=== PATIENT | female | born 2000 | race Hispanic/Latino ===

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

== ENCOUNTER 2023-03-13 09:10 | Emergency (ER) | payer SELFPAY ==
[2023-03-13 09:12] VITALS: BP 116/74; PULSE 78; RESP 16; TEMP 36.2; O2SAT 100; BMI 41.1
--- NOTE | 2023-03-13 10:02 | EDS_ITS ---
HPI History of Present Illness Chief Complaint: Abd Pain Narrative Narrative: Patient is a 22-year-old female who is presenting to the ER today with chief complaint abdominal cramping, urinary frequency, nausea vomiting. Patient is a G2, P1. Patient first was a , secondary to the fetus was hypoxic and patient had emergency . patient is currently here with her boyfriend. No complications occurred during her first . Electrical Superintendent was used for effective and clear communication with patient and her boyfriend at bedside. Patient allowed all information to occur at bedside with boyfriend. Patient has no pelvic pain, no vaginal bleeding. Patient is having urinary frequency. Patient is having diffuse abdominal pain/cramping along with some left lower back pain as well. No history of kidney stone. Patient has no fever or chills. Patient's had no vitamins. Patient has no PEDIATRIC CLINICAL DIETICIAN to follow-up with. Patient currently has no vaginal bleeding. Patient's first day of her last mental period was on December 20. Patient not lightheaded dizzy, no other sick contacts, no other acute complaints. Patient has no PEDIATRIC CLINICAL DIETICIAN to follow-up with. A auto service mechanic was used for communication. This was clear and effective. Patient's boyfriend is at bedside, we can speak about patient's medical care in front of her boyfriend as well. [facility] Medical History (Updated 03/13/23 @ 13:[address] Joon Husain DO) delivery delivered Home Medications nitrofurantoin monohydrate/macrocrystals 100 mg capsule 100 mg PO Q12 #14 CAPSULES 03/13/23 [Rx Last Taken Unknown] ondansetron 4 mg disintegrating tablet 4 mg PO Q8H PRN PRN Nausea #10 tabs 03/13/23 [Rx Last Taken Unknown] Allergy/AdvReac Type Severity Reaction Status Date / Time No Known Allergies Allergy Verified 08/21/21 16:05 Social History (Updated 08/21/21 @ 16:[address] Orlando Emery DO) Smoking Status: Never smoker ROS ROS ED ROS Narrative REVIEW OF SYSTEMS: Unless otherwise stated in this report the patient's positive and negative responses for review of systems for constitutional, eyes, ENT, cardiovascular, respiratory, gastrointestinal, neurological, , musculoskeletal, and integument systems and related systems to the presenting problem are either stated in the history of present illness or were not pertinent or were negative for the symptoms and/or complaints related to the presenting medical problem. EXAM Physical Exam Narrative Exam Narrative: Vital signs reviewed and patient is not hypoxic. Electrical Superintendent was used to help with [place]. Medication was clear with textbook associate. It was effective General: The patient appears well and in no apparent distress. Patient is resting comfortably on cart. Not toxic, lethargic, or listless. Skin: Warm, dry, no pallor noted. There is no rash noted. Head: Normocephalic, atraumatic Eye: Normal conjunctiva, no drainage, EOMI. PERRL. Ears, Nose, Mouth, and Throat: oral mucosa is moist. Nares patent. Mouth without vesicles. Cardiovascular: Regular Rate and Rhythm, no murmurs, gallops, or rubs Respiratory: Patient is in no distress, no accessory muscle use, lungs are clear to auscultation, no wheezing, rales or rhonchi Back: non-tender, no CVA tenderness bilaterally to percussion. NO CTLS midline or paraspinal tenderness to palpation. GI: Soft, no peritoneal signs, mild left flank tenderness to palpation, no right flank tenderness palpation. No right CVA tenderness, mild left CVA tenderness palpation. No rash. Diffuse periumbilical tenderness palpation, mild, no pain or McBurney's point, negative Rogers sign, abdomen is soft, no other acute complaints. Otherwise no tenderness to palpation, no masses appreciated. No rebound, guarding, or rigidity noted. Musculoskeletal: The patient has full range of motion of all extremities and j oints with no difficulty. Patient has no motor, no sensory deficits. Neurological: A&O x4, normal speech, no focal neurological deficits. Psychiatric: Cooperative Const Vital Signs: 03/13/23 09:12 Temperature 97.2 F L Temperature Source Temporal Pulse Rate 78 Respiratory Rate 16 Blood Pressure 116/74 Blood Pressure Mean 88 Pulse Ox 100 Oxygen Delivery Method Room Air MDM MDM MDM Narrative Medical decision making narrative: Patient will have IV established, patient given IV fluids, Zofran, lab testing and urine testing done. Patient has no pelvic pain or vaginal bleeding, no acute indication for ultrasound or further testing at this time. heart tones will be attempted Patient has nitrate in her urine. Patient lab work otherwise shows no acute findings. Patient feels better after IV fluids, IV Zofran. Patient is placed on Macrobid, sent him a prescription for Zofran as well. Patient has PEDIATRIC CLINICAL DIETICIAN referral as well. Patient understands that she needs to start taking vitamins and make an appointment with an PEDIATRIC CLINICAL DIETICIAN. Translation was done at bedside as well with a water supply engineer. Luther BAIRD was at bedside for a witness of this as well at patient's discharge. The workup, lab results, treatment plan, discharge instructions, and prescriptions were discussed at bedside and patient understands the plan clearly with auto service mechanic. Lab Data Labs: Laboratory Results - last 24 hr 03/13/23 03/13/23 09:35 10:35 WBC 9.6 RBC 4.06 L Hgb 11.6 L Hct 34.6 L MCV 85.2 MCH 28.6 MCHC 33.5 RDW Std Deviation 37.0 RDW Coeff of Tania 11.9 Plt Count 401 MPV 9.1 Immature Gran % (Auto) 0.200 Neut % (Auto) 73.8 H Lymph % (Auto) 19.6 [place] % (Auto) 4.6 Eos % (Auto) 1.4 Baso % (Auto) 0.4 Absolute Neuts (auto) 7.1 Absolute Lymphs (auto) 1.87 Nucleated RBC % 0 Sodium 135 L Potassium 3.5 Chloride 103 Carbon Dioxide 26.0 Anion Gap 6 BUN 6 L Creatinine 0.41 L Estim Creat Clear Calc 258.60 Est GFR (MDRD) Af Amer 250 Est GFR (MDRD) Non-Af 207 BUN/Creatinine Ratio 14.5 Glucose 83 Calcium 9.4 Total Bilirubin 0.30 AST 14 L ALT 19 Alkaline Phosphatase 94 Total Protein 8.0 Albumin 3.1 L Globulin 4.9 H Albumin/Globulin Ratio 0.6 L Lipase 23 Urine Color Yellow Urine Clarity Sl. Cloudy Urine pH 6.0 Ur Specific [place] 1.015 Urine Protein 15 H Urine Glucose (UA) Normal Urine Ketones 15 H Urine Occult Blood Negative Urine Nitrite Positive H Urine Bilirubin Negative Urine Urobilinogen Normal Ur Leukocyte Esterase Negative Urine RBC 0 SEEN Urine WBC 0-5 SEEN Ur Squamous Epith Cells 5-10 SEEN Urine Bacteria 2+ Urine Mucus RARE Discharge Plan Triage Chief Complaint: Abd Pain ED Provider: Joon Husain Dx/Rx/DC Orders Clinical Impression: UTI (urinary tract infection), Instructions: Urinary Tract Infections in Women, ED Prescriptions: New ondansetron [ondansetron] 4 mg tablet,disintegrating 4 mg PO Q8H PRN PRN (Reason: Nausea) Qty: 10 0RF nitrofurantoin monohyd/m-cryst [nitrofurantoin monohyd/m-cryst] 100 mg capsule 100 mg PO Q12 Qty: 14 0RF Primary Care Provider: Care Physician,No Primary Referrals: Rebecca Hung CNM [Med Staff - [facility] Practice Prof] - Care Physician,No Primary [Primary Care Provider] - Activity Restrictions/Additional Instructions: Increase fluids daily. Start taking vitamins daily. Use Tylenol for any type of pain or cramping. You need to establish PEDIATRIC CLINICAL DIETICIAN immediately, Dr. Dawn has been referred you as well. You can also follow-up with the health department or [facility]. You do have a urinary tract infection, increase fluids, take and finish antibiotics. Use nausea medication if needed for nausea vomiting with Print Language: Com[place]an Disposition Disposition: Home, Self Care Discharge Date/Time: 03/13/23 13:38
[2023-03-13 10:12] LABS: Absolute Lymphocyte Count 1.87 X10^3/uL (0.83-4.51); Absolute Neutrophil Count 7.1 X10^3/uL (2.0-7.7); Basophil# 0.04 X10^3/uL; Basophil% 0.4 % (0-1); Eosinophil# 0.13 X10^3/uL; Eosinophils% 1.4 % (0-5); Hematocrit 34.6 % (37-47); Hemoglobin 11.6 g/dL (12.0-15.0); Lymphocyte # 1.87 X10^3/ul (0.83-4.51); Lymphocyte % 19.6 % (19-41); Mean Corp Hgb Conc 33.5 g/dL (32-36); Mean Corpuscular Hgb 28.6 pg (27.0-32.0); Mean Corpuscular Volume 85.2 fL (81-99); Mean Platelet Vol. 9.1 fl (6.2-12.0); Monocyte# 0.44 X10^3/uL; Monocyte% 4.6 % (0-10); NRBC Flagged by Analyzer 0 % (0-5); Neutrophil # 7.05 X10^3/uL (2.7-7.7); Neutrophil % 73.8 % (47-70); Platelet Count 401 K/mm3 (150-450); RBC Distribution Width CV 11.9 % (11.6-14.6); Red Blood Count 4.06 M/mm3 (4.2-5.4); White Blood Count 9.6 K/mm3 (4.4-11.0)
[2023-03-13 10:30] LABS: ALB/GLOB Ratio 0.6 RATIO (0.9-2.4); AST(SGOT) 14 U/L (15-37); Alanine Aminotransfer ALT/SGPT 19 U/L (13-56); Albumin, Serum 3.1 g/dL (3.2-5.0); Alkaline Phosphatase 94 U/L (45-117); Anion Gap 6 (5-15); BUN 6 mg/dL (7-18); BUN/Creat Ratio 14.5 RATIO (10-20); Calcium,Total 9.4 mg/dL (8.5-10.1); Chloride 103 mmol/L (98-107); Creatinine, Serum 0.41 mg/dL (0.55-1.02); EST Glomerular Filtration Rate 207 mL/min (>60); Est Glom Filt Rate - Afr Amer 250 mL/min (>60); Globulin 4.9 g/dL (2.2-4.2); Glucose 83 mg/dL (74-106); Lipase 23 U/L (13-75); Potassium 3.5 mmol/L (3.5-5.1); Sodium Level 135 mmol/L (136-145)
[2023-03-13] MEDS: 0.9% Normal Saline (1000mL) 1,000 ML 1000 ML IV (10:36)
[2023-03-13] MEDS: Ondansetron 4 MG/2 ML Vial IV (10:36)
[2023-03-13 10:42] LABS: Red Blood Cells-Urine 0 SEEN /hpf (0-5)
[2023-03-13 10:43] LABS: Color, Urine Yellow (Yellow); Glucose, Dipstick Normal (Normal); Ketone-Dipstick 15 mg/dl (Negative); Leukocyte Esterase-Dipstick Negative /ul (Negative); Nitrite-Dipstick Positive (Negative); Occult Blood-Urine Negative /ul (Negative); Protein-Dipstick 15 mg/dl (Negative); Specific Gravity, Urine 1.015 (1.002-1.030); Urine Bilirubin Dipstick Negative (Negative); Urine Clarity Sl. Cloudy (Clear); Urine Urobilinogen Normal (Normal)
[2023-03-13 10:59] LABS: Bacteria 2+ /hpf (None Seen); Mucous, Urine RARE /hpf (<or=2+); Squamous Epithelial Cells - UA 5-10 SEEN /hpf (5-10); White Blood Cells 0-5 SEEN /hpf (0-5)
[2023-03-13 13:38] VITALS: BP 129/77; PULSE 66; RESP 16; O2SAT 100
== END 2023-03-13 13:38 | disposition home or self-care (01) ==
PROVIDERS: Emergency Provider Emergency Medicine; Visit Provider Emergency Medicine
DX: O23.40 Unspecified infection of urinary tract in pregnancy, unspecified trimester (principal); N39.0 Urinary tract infection, site not specified; O99.891 Other specified diseases and conditions complicating pregnancy; Z3A.00 Weeks of gestation of pregnancy not specified
CPT/HCPCS: 80053; 81001; 83690; 85025; 96361; 96374; 99283; J7030; J2405